=== PATIENT | female | born 1970 | race Caucasian/White ===

== ENCOUNTER → 2017-01-28 | Outpatient (CLI) | payer MEDICAID ==
[~2017-01-28] MED LIST: VICODIN 5/500 T1 TAB PO; ZANTAC 150MG T150 MG PO
[2017-01-28 19:37] LABS: AMPHETAMINES/METAMPHETAMINES NEGATIVE ng/mL (<1000)
[2017-02-05 16:37] LABS: Alprazolam Negative (Cutoff=100); Benzodiazepines Negative ng/mL (Cutoff=100); Clonazepam Negative (Cutoff=100); Flurazepam Negative (Cutoff=100); Lorazepam Negative (Cutoff=100); Midazolam Negative (Cutoff=100); Temazepam Negative (Cutoff=100); Triazolam Negative (Cutoff=100)
== END ==
LOC: LAB 15:45
PROVIDERS: Emergency Medicine
DX: Z79.899 Other long term (current) drug therapy (principal)
CPT/HCPCS: G0480

== ENCOUNTER 2017-03-18 10:27 | Day surgery (SDC) | payer MEDICAID ==
[~2017-03-18] VITALS: Ht 175.3 cm; Wt 78.0 kg
--- NOTE | 2017-03-18 13:10 | Anesthesia Record ---
Anesthesia Record Part II Discharge time: 1335 Destination: Same day surgery PACU nurse assessment review? Yes Patient is: Stable Anesthesia complications? No at 1310
--- NOTE | 2017-03-18 13:10 | Anesthesia Record ---
Anesthesia Record Part I Total IV fluids: 1300 EBL (ml): 0 Urine Output: 0 B/P: 113/73 % SaO2: 96 Pulse: 79 Resps: 16 Temp: 97.6 Patient is: Stable Stable to PACU at: 1305 at 1309
[2017-03-18 14:59] VITALS: BP 99/69
--- NOTE | 2017-03-20 09:30 | Operative Note ---
Procedure/Operative Record Date of Procedure: 03/18/17 Pre-op diagnosis: RIGHT carpal tunnel syndrome Post-op diagnosis: Same Procedure performed: RIGHT carpal tunnel release Surgeon: Michael Jc Anesthesia: Gen. anesthetic Indications: This patient is a 46-year-old female with RIGHT carpal tunnel syndrome worse than the LEFT. She is here for release the RIGHT carpal tunnel. Her electrodiagnostic studies are consistent with severe carpal tunnel syndrome and her clinical examination fits with this as well. She has not responded well to conservative therapy. Carpal tunnel release is considered the standard of care and is clearly indicated to help preserve function of the median nerve. Considered medically necessary and appropriate procedure. Findings: The median nerve was quite dusky and there was prominent synovitis. Description of procedure: The patient was taken to the operating room and the above anesthetic administered. The RIGHT arm was prepped and draped in the usual sterile fashion. After exsanguination, general anesthetic was administered and the tourniquet was inflated to 250 torr. . Please see nurses record for total tourniquet time. Cyr's landmarks were utilized and an incision made parallel to the thenar crease with a 15 blade. Blunt tissue dissection through the subcutaneous tissue down to the palmar fascia was performed. The palmar fascia was incised with a 69 [place] blade to reveal the transverse carpal ligament. Some fibers the palmaris brevis were swept aside to adequate expose the transverse carpal ligament and the transverse carpal ligament was then incised with a 69 [place] blade just enough to expose the median nerve. We then protected the median nerve with a [place] elevator and extended the incision on the ulnar aspect of the nerve using the [place] blade. We then completed the incision proximally using a pair of tenotomy scissors. We found that the transverse carpal ligament was contiguous with the antebrachial fascia and extended the skin incision and released the distal aspect of the antebrachial fascia as well. A complete release proximally was documented by easily obtained side to side movement of the proximal carpal tunnel segments. Attention was then turned distally. Similarly, we incised the distal aspect of the transverse carpal ligament using the tenotomy scissors. Fat demarcating the end of the carpal tunnel was identified and we ensured that the motor branch was not endangered by any anatomic variation. We also then ensured that we had free side to side movement of the entire transverse carpal tunnel ligament segments and that the vascular arches had not been compromised. We then inspected the nerve. Moderate hyperemic changes, duskiness of the nerve and slight indentation from pressure of the transverse carpal ligament was identified. There was duskiness involving an area of the nerve with associated hyperemia for several millimeters. There were no space-occupying lesions within the transverse carpal canal. We then irrigated the incision closed with a running 4-0 nylon suture. Local anesthetic consisting of Marcaine with epinephrine was injected for a total of four mL. Dressings were applied and the tourniquet deflated and then the patient was transported to the recovery room in satisfactory condition. EBL (ml): 1 at 0941
== END 2017-03-18 14:13 | disposition home or self-care (01) ==
LOC: SDC 10:27
PROVIDERS: Orthopaedic Surgery
PROC: 01N50ZZ Release Median Nerve, Open Approach (ICD-10-PCS; principal; 2017-03-18 12:15)
DX: G56.01 Carpal tunnel syndrome, right upper limb (principal)
CPT/HCPCS: J2405; S0077

== ENCOUNTER → 2017-04-04 | Outpatient (CLI) | payer MEDICAID ==
[2017-04-04 19:13] LABS: AMPHETAMINES/METAMPHETAMINES NEGATIVE ng/mL (<1000)
[2017-04-15 12:39] LABS: Alprazolam Negative (Cutoff=100); Benzodiazepines Negative ng/mL (Cutoff=100); Clonazepam Negative (Cutoff=100); Flurazepam Negative (Cutoff=100); Lorazepam Negative (Cutoff=100); Midazolam Negative (Cutoff=100); Temazepam Negative (Cutoff=100); Triazolam Negative (Cutoff=100)
== END ==
LOC: LAB 17:26
PROVIDERS: Emergency Medicine
DX: Z79.899 Other long term (current) drug therapy (principal)
CPT/HCPCS: G0480